=== PATIENT | female | born 1965 | race Caucasian/White ===

== ENCOUNTER 2017-05-12 00:01 | Outpatient (RCR) | payer MEDICARE, MEDICAID, SELFPAY ==
[~2017-05-12 00:01] MED LIST: ARTANE; BUSP5TAB20 PO; BUSPAR; CITA10TA68 PO; DEPAKOTE; DIPH25CA85 PO; OLAN20TA2 PO; QUET50TA PO; TOPAMAX; TOPI100T37 PO; ZYPREXA
[2017-06-03 08:07] LABS: HEPATITIS Bs ANTIGEN SCREEN P Negative (Negative); HEPATITIS C AB SCREEN <0.1 s/co ratio (0.0-0.9)
== END 2017-06-10 | disposition home or self-care (01) ==
LOC: IOPBV 00:01
DX: F20.3 Undifferentiated schizophrenia (principal); F17.210 Nicotine dependence, cigarettes, uncomplicated; F10.21 Alcohol dependence, in remission; Z88.0 Allergy status to penicillin
CPT/HCPCS: 80074; 86708; 90853

== ENCOUNTER 2018-11-18 20:28 | Emergency (ER) | payer MEDICARE, OTHER ==
[~2018-11-18] VITALS: Ht 152.4 cm; Wt 72.7 kg
[~2018-11-18 20:28] MED LIST changes: -ARTANE; -BUSPAR; -CITA10TA68 PO; -DEPAKOTE; -QUET50TA PO; -TOPAMAX; -ZYPREXA
[2018-11-18] MEDS ORDERED: BUSP15 PO (20:42)
[2018-11-18] MEDS ORDERED: TRIH2TAB3 PO (20:42)
[2018-11-18] MEDS ORDERED: PROZ10 PO (20:42)
[2018-11-18] MEDS ORDERED: TOPI200C5 PO (20:42)
[2018-11-18] MEDS ORDERED: OLAN10TA3 PO (20:42)
[2018-11-18] MEDS ORDERED: DIPH25TA19 PO (20:42)
[2018-11-18] MEDS ORDERED: OMEP20 PO (20:42)
[2018-11-18] MEDS ORDERED: OLAN5TAB2 PO (20:42)
[2018-11-18 21:25] VITALS: BP 126/74
== END 2018-11-18 21:32 | disposition home or self-care (01) ==
LOC: EMS 20:29
DX: T78.1XXA Other adverse food reactions, not elsewhere classified, initial encounter (principal); F32.9 Major depressive disorder, single episode, unspecified; F20.9 Schizophrenia, unspecified; Z88.0 Allergy status to penicillin

== ENCOUNTER → 2018-11-23 | Outpatient (CLI) | payer MEDICARE, OTHER ==
[~2018-11-23] MED LIST changes: +BUSP15 PO; -BUSP5TAB20 PO; -DIPH25CA85 PO; +DIPH25TA19 PO; +OLAN10TA3 PO; -OLAN20TA2 PO; +OLAN5TAB2 PO; +OMEP20 PO; +PROZ10 PO; -TOPI100T37 PO; +TOPI200C5 PO; +TRIH2TAB3 PO
[2018-11-27 09:32] LABS: CHOL/HDL RATIO 3.4 (3.9-5.7); HEMOGLOBIN A1C 5.4 % (4.5-6.2)
== END | disposition home or self-care (01) ==
LOC: LABMN 15:24
DX: F25.0 Schizoaffective disorder, bipolar type (principal); R79.89 Other specified abnormal findings of blood chemistry
CPT/HCPCS: 82947; 83036

== ENCOUNTER 2020-04-19 19:55 | Emergency (ER) | payer MEDICARE, OTHER ==
[~2020-04-19] VITALS: Ht 152.4 cm; Wt 72.7 kg
[2020-04-19] MEDS ORDERED: ACETAMINOPHEN 500 MG TABLET PO ONE (20:30)
[2020-04-19 21:04] LABS: BASOPHILS % (AUTO) 0.3 % (0.0-2.0); EOSINOPHILS % (AUTO) 0.3 % (1.0-6.0); HEMATOCRIT 34.9 % (36-46); HEMOGLOBIN 11.1 g/dL (12.0-16.0); LYMPHOCYTES # (AUTO) 1.3 K/uL (1.0-4.8); LYMPHOCYTES % (AUTO) 7.1 % (22.0-44.0); MEAN CORPUSCULAR HEMOGLOBIN 27.4 pg (26.0-34.0); MEAN CORPUSCULAR HGB CONC 31.9 G/dL (31.0-37.0); MEAN CORPUSCULAR VOLUME 86 fL (80-100); MONOCYTES # (AUTO) 1.1 K/uL (0.1-1.0); MONOCYTES % (AUTO) 6.2 % (2.0-9.0); NEUTROPHILS # (AUTO) 15.6 K/uL (1.8-7.7); PLATELET COUNT (AUTO) 275 K/uL (150-450); RED BLOOD CELL COUNT(AUTO) 4.06 MIL/uL (4.00-5.20); RED CELL DISTRIBUTION WIDTH 15.7 % (11.5-14.5)
[2020-04-19 21:06] LABS: NEUTROPHILS % (AUTO) 86.1 % (40.0-70.0)
[2020-04-19 21:15] LABS: CREATININE 1.11 mg/dL (0.60-1.30); POTASSIUM 3.5 mmol/L (3.5-5.1)
[2020-04-19 21:47] VITALS: BP 115/67
== END 2020-04-19 21:49 | disposition home or self-care (01) ==
LOC: EMS 19:55
DX: R07.89 Other chest pain (principal); R05 Cough; M79.10 Myalgia, unspecified site; F32.9 Major depressive disorder, single episode, unspecified; F20.9 Schizophrenia, unspecified; F17.210 Nicotine dependence, cigarettes, uncomplicated; Z20.828 Contact with and (suspected) exposure to other viral communicable diseases; Z88.0 Allergy status to penicillin
CPT/HCPCS: 36415; 71045; 80048; 84484; 85025; 93005; 99285; U0003

== ENCOUNTER 2023-06-25 15:37 | Emergency (ER) | payer MEDICARE, OTHER ==
[~2023-06-25] VITALS: Ht 157.5 cm; Wt 71.0 kg
[~2023-06-25 15:37] MED LIST changes: +FLUO10CA24 PO; -OLAN10TA3 PO; +OLAN10TA74 PO; -OLAN5TAB2 PO; +OLAN5TAB52 PO; -PROZ10 PO
[2023-06-25 15:48] VITALS: TEMP 99.2
[2023-06-25] MEDS ORDERED: LIDOCAINE 1% 10 ML VIAL SQ ONE (16:45)
[2023-06-25] MEDS ORDERED: CEPHALEXIN MONOHYDRATE 500 MG CAPSULE PO ONE (16:45)
[2023-06-25] MEDS ORDERED: DOXYCYCLINE HYCLATE 100 MG TABLET PO ONE (16:45)
[2023-06-25] MEDS ORDERED: ACETAMINOPHEN 500 MG TABLET PO ONE (16:45)
[2023-06-25 17:15] VITALS: BP 145/70; PULSE 95; RESP 14
== END 2023-06-25 17:52 | disposition home or self-care (01) ==
LOC: EMS 15:51
DX: L05.01 Pilonidal cyst with abscess (principal); F20.9 Schizophrenia, unspecified; F32.A Depression, unspecified; F17.210 Nicotine dependence, cigarettes, uncomplicated; Z98.890 Other specified postprocedural states; Z88.0 Allergy status to penicillin
CPT/HCPCS: 10080; 99284; J3490

== ENCOUNTER 2023-06-28 10:18 | Emergency (ER) | payer MEDICARE, OTHER ==
[~2023-06-28] VITALS: Ht 157.5 cm; Wt 70.5 kg
[2023-06-28 10:24] VITALS: BP 113/61; PULSE 80; RESP 18; TEMP 98.6
== END 2023-06-28 12:01 | disposition home or self-care (01) ==
LOC: EMS 10:18
DX: L05.01 Pilonidal cyst with abscess (principal); F32.A Depression, unspecified; F20.9 Schizophrenia, unspecified; F17.210 Nicotine dependence, cigarettes, uncomplicated; Z98.890 Other specified postprocedural states; Z88.0 Allergy status to penicillin
CPT/HCPCS: 99281; Z7502

== ENCOUNTER 2023-06-30 08:50 | Emergency (ER) | payer MEDICARE, OTHER ==
[~2023-06-30] VITALS: Ht 157.5 cm; Wt 72.7 kg
[2023-06-30 08:57] VITALS: BP 115/70; PULSE 87; RESP 18; TEMP 98.6
[2023-06-30] MEDS ORDERED: BACITRACIN 0.9 GM PACKET OINTMENT TP ONE (09:15)
[2023-06-30] MEDS ORDERED: DOXY-354 PO (09:18)
== END 2023-06-30 09:40 | disposition home or self-care (01) ==
LOC: EMS 08:55
DX: L05.01 Pilonidal cyst with abscess (principal); F32.A Depression, unspecified; F20.9 Schizophrenia, unspecified; F17.210 Nicotine dependence, cigarettes, uncomplicated; Z98.890 Other specified postprocedural states; Z88.0 Allergy status to penicillin
CPT/HCPCS: 99283

== ENCOUNTER 2024-07-27 12:21 | Emergency (ER) | payer MEDICARE, OTHER ==
[~2024-07-27] VITALS: Ht 152.4 cm; Wt 72.7 kg
[~2024-07-27 12:21] MED LIST changes: +DOXY-354 PO
[2024-07-27 12:25] VITALS: TEMP 97.9
[2024-07-27] MEDS ORDERED: FLUO40CA PO (12:30)
[2024-07-27] MEDS ORDERED: FLUO-342 PO (12:30)
[2024-07-27] MEDS ORDERED: OLAN20TA82 PO (12:30)
[2024-07-27] MEDS ORDERED: OLAN5TAB77 PO (12:30)
[2024-07-27] MEDS ORDERED: TOPI200T16 PO (12:30)
[2024-07-27 14:25] VITALS: BP 130/70; PULSE 81; RESP 18; O2SAT 99
[2024-07-27] MEDS ORDERED: IBUP-1554 PO (14:31)
[2024-07-27] MEDS ORDERED: ACET-66 PO (14:31)
[2024-07-27] MEDS ORDERED: METH-659 PO (14:31)
== END 2024-07-27 14:47 | disposition home or self-care (01) ==
LOC: EMS 12:38
DX: S86.911A Strain of unspecified muscle(s) and tendon(s) at lower leg level, right leg, initial encounter (principal); G89.29 Other chronic pain; M54.50 Low back pain, unspecified; F41.9 Anxiety disorder, unspecified; F32.A Depression, unspecified; F20.9 Schizophrenia, unspecified; F17.210 Nicotine dependence, cigarettes, uncomplicated; Z98.890 Other specified postprocedural states; Z88.0 Allergy status to penicillin; X58.XXXA Exposure to other specified factors, initial encounter; Y93.89 Activity, other specified; Y92.89 Other specified places as the place of occurrence of the external cause; Y99.8 Other external cause status
CPT/HCPCS: 99283

== ENCOUNTER 2025-05-10 14:09 | Emergency (ER) | payer MEDICARE, OTHER ==
[~2025-05-10] VITALS: Ht 152.4 cm; Wt 73.0 kg
[~2025-05-10 14:09] MED LIST changes: +ACET-66 PO; -DIPH25TA19 PO; -DOXY-354 PO; +FLUO-342 PO; -FLUO10CA24 PO; +FLUO40CA PO; +IBUP-1554 PO; +METH-659 PO; -OLAN10TA74 PO; +OLAN20TA82 PO; -OLAN5TAB52 PO; +OLAN5TAB77 PO; -OMEP20 PO; -TOPI200C5 PO; +TOPI200T68 PO
[2025-05-10 14:20] VITALS: TEMP 98.1
[2025-05-10 15:16] VITALS: BP 124/76; PULSE 75; RESP 16; O2SAT 98
[2025-05-10] MEDS ORDERED: METH-659 PO (16:53)
[2025-05-10] MEDS: KETOROLAC TROMETHAMINE 60 MG/2 ML VIAL IM ONE (17:17)
[2025-05-10] MEDS: ACETAMINOPHEN 500 MG TABLET PO ONE (17:18)
== END 2025-05-10 17:24 | disposition home or self-care (01) ==
LOC: EMS 14:09
DX: G89.29 Other chronic pain (principal); M54.50 Low back pain, unspecified; F41.9 Anxiety disorder, unspecified; F20.9 Schizophrenia, unspecified; F32.A Depression, unspecified; F17.210 Nicotine dependence, cigarettes, uncomplicated; Z88.0 Allergy status to penicillin; Z79.899 Other long term (current) drug therapy
CPT/HCPCS: 99283; 96372; J1885